=== PATIENT | male | born 1990 | race Caucasian/White ===

== ENCOUNTER 2016-11-24 01:01 | Observation (INO) | payer SELFPAY ==
[2016-11-24 01:17] VITALS: RESP 20; O2SAT 98
[2016-11-24] MEDS ORDERED: Tetanus/Diphtheria Toxoids 0.5 ml Syringe IM ONE ×2 (01:25→01:29)
[2016-11-24] MEDS ORDERED: Lidocaine 1% Inj (20ml) INFIL ONE (01:25)
[2016-11-24] MEDS ORDERED: Lidocaine 1% Inj (20ml) ONE (01:28)
--- NOTE | 2016-11-24 01:49 | C.PDOC ---
History Of Present Illness 25 year old male brought to the ED by ambulance for evaluation of left eyebrow laceration sustained prior to arrival. Patient states he was drinking beer last night and went to the bathroom to vomit and fell and hit his head on the bathtub. He can not confirm or deny LOC but can deny fever, nausea, vomiting, or any vision changes. Time Seen by Provider: 11/24/16 01:09 Chief Complaint (Nursing): Abnormal Skin Integrity History Per: Patient History/Exam Limitations: intoxication Onset/Duration Of Symptoms: Hrs Current Symptoms Are (Timing): Still Present Location Of Injury: Left: Face Severity: Mild Additional History Per: EMS Past Medical History Reviewed: Historical Data, Nursing Documentation, Vital Signs Vital Signs: Last Vital Signs Temp 97.3 F L 11/24/16 05:51 Pulse 89 11/24/16 05:51 Resp 20 11/24/16 05:51 BP 122/70 11/24/16 05:51 Pulse Ox 98 11/24/16 05:53 - Medical History PMH: Depression Family History: States: No Known Family Hx - Social History Hx Alcohol Use: Yes Hx Substance Use: No - Immunization History Hx Tetanus Toxoid Vaccination: No Hx Influenza Vaccination: No Hx Pneumococcal Vaccination: No Review Of Systems Except As Marked, All Systems Reviewed And Found Negative. Constitutional: Negative for: Fever, Chills Eyes: Positive for: Other (pain @ left forehead/eyebrow area ). Negative for: Vision Change Cardiovascular: Negative for: Chest Pain Respiratory: Negative for: Cough, Shortness of Breath Gastrointestinal: Negative for: Nausea, Vomiting, Abdominal Pain, Diarrhea Neurological: Positive for: Headache. Negative for: Weakness, Numbness, Dizziness Psych: Positive for: Other (alcohol intoxication) Physical Exam - Physical Exam Appears: Well, Non-toxic, No Acute Distress, Other (appears intoxicated) Skin: Warm, Dry, Other (approx 4.5cm laceration through left eyebrow, no surrounding erythema, no foreign bodies) Eye(s): bilateral: PERRL, EOMI Oral Mucosa: Moist Neck: Supple Cardiovascular: Rhythm Regular Respiratory: Normal Breath Sounds, No Rales, No Rhonchi, No Wheezing Gastrointestinal/Abdominal: Normal Exam, Bowel Sounds, Soft, No Tenderness Extremity: Normal ROM, No Tenderness Neurological/Psych: Oriented x3 ED Course And Treatment O2 Sat by Pulse Oximetry: 98 (RA) Pulse Ox Interpretation: Normal - CT Scan/US ct head Other Rad Studies (CT/US): Read By Radiologist, Radiology Report Reviewed CT/US Interpretation: [facility]. [facility] Radiology [facility]. Preliminary Radiology Report Call: [phone]. assistance Online chat: [email or web address]. Name: SALVATORE QUEVEDO Age: 25Years M Date: 2016. Requesting Physician: DIANA ARORA : 1990. [facility] Procedure Ordered As Accession Number of Images. CT HEAD WO CT HEAD W O CONTRAST [id number] 315. Provided Clinical History: head injury, loc. DISTRIBUTION MANAGER (QA) DISCREPANCY? If there is a discrepancy between the preliminary and final interpretation, please notify [facility] via [email or web address]. If you do not have access to our QA portal, call our QA team at [phone]. CONFIDENTIALITY STATEMENT. This report is intended only for the use of the referring physician, and only in accordance with law, If you received this in error, call [phone]. Page 1 of 1. EXAM: CT Head Without Intravenous Contrast. CLINICAL HISTORY: 25 years old, male; Pain; Headache and other: Injury; Additional info: Head injury, loc. TECHNIQUE: Axial computed tomography images of the head/brain without intravenous contrast. This CT exam. was performed using one or more of the following dose reduction techniques: automated exposure. control, adjustment of the mA and/or kV according to patient size, and/or use of iterative. reconstruction technique. COMPARISON: No relevant prior studies available. FINDINGS: Brain : Unremarkable. No hemorrhage. No significant white matter disease. No edema. Ventricles: Unremarkable. No ventriculomegaly. Bones/joints: Unremarkable. No acute fracture. Soft tissues: Unremarkable. Sinuses: Unremarkable as visualized. No acute sinusitis. Mastoid air cells: Unremarkable as visualized. No mastoid effusion. IMPRESSION: Normal head/brain CT. Thank you for allowing us to participate in the care of your patient. Dictated and Authenticated by: Sarbjit Miguel MD. 11/24/2016 2:31 AM Eastern Time ([place] & [place]) Progress Note: CT head and accucheck ordered and reviewed. Patient given PO tylenol for pain, and IM tetanus vaccination. Laceration repair done by me, patient tolerated well. Patient placed in ED observation pending sobriety. Reevaluation Time: 06:00 Reassessment Condition: Improved (Patient reassessed, is currently AAOx3, and ambulating normally in the ED. Patient clinically sober at this time, will discharge. Patient given Rx for Naprosyn, and instructed to follow up with PMD/ clinic in 1-2 days. He is aware of need for suture removal in 5-7 days, and he understands he should return to ED if he develops any concerning symptoms.) Laceration - Laceration Repair left eyebrow Wound Length (In cm): 4.5 Description Of Wound: Linear Wound Cleansed With: Sterile Saline Anesthesia: Lidocaine 1% Wound Examination: Irrigated With Saline (100ml), No FB With Wound Exploration, No Tendon Injury With Wound Exploration Wound Closure: Suture Suture Technique And Material Used: Interrupted, Nylon (6 dermal ethilon 5.0 sutures), Vicryl (4 subcutaneous Vicryl 4.0 sutures) Wound Complexity: Intermediate Disposition Counseled Patient/Family Regarding: Studies Performed, Diagnosis, Need For Followup, Rx Given - Disposition Disposition: HOME/ ROUTINE Disposition Time: 06:00 Condition: STABLE - POA Present On Arrival: Falls Or Trauma - Clinical Impression Clinical Impression: Laceration of eyebrow, left, Closed head injury, Alcohol intoxication - Scribe Statement The provider has reviewed the documentation as recorded by the Scribrajan Hi All medical record entries made by the Andreeibrajan were at my direction and personally dictated by me. I have reviewed the chart and agree that the record accurately reflects my personal performance of the history, physical exam, medical decision making, and the department course for this patient. I have also personally directed, reviewed, and agree with the discharge instructions and disposition.
[2016-11-24] MEDS ORDERED: Bacitracin 500 Units/gm Oint Foilpak UD TOP ONE (02:55)
[2016-11-24] MEDS ORDERED: Bacitracin 500 Units/gm Oint Foilpak UD ONE (03:08)
[2016-11-24 05:52] VITALS: BP 122/70; PULSE 89; TEMP 97.3
--- NOTE | 2016-11-24 09:18 | CT ---
PROCEDURE: CT HEAD WITHOUT CONTRAST. HISTORY: head injury, loc COMPARISON: None available. TECHNIQUE: Axial computed tomography images were obtained through the head/brain without intravenous contrast. Radiation dose: Total exam DLP = 720.80 mGy-cm. This CT exam was performed using one or more of the following dose reduction techniques: Automated exposure control, adjustment of the mA and/or kV according to patient size, and/or use of iterative reconstruction technique. FINDINGS: HEMORRHAGE: No intracranial hemorrhage. BRAIN: No mass effect or edema. No atrophy or chronic microvascular ischemic changes. VENTRICLES: Unremarkable. No hydrocephalus. CALVARIUM: Unremarkable. PARANASAL SINUSES: Unremarkable as visualized. No significant inflammatory changes. MASTOID AIR CELLS: Unremarkable as visualized. No inflammatory changes. OTHER FINDINGS: None. IMPRESSION: No acute intracranial abnormalities. No significant findings to account for the clinical presentation. Concordant results (preliminary interpretation) provided by [facility]. Procedure Completed: 02:20. Preliminary ([facility]) Report: Dictated and Authenticated: 02:31. Final Interpretation: 09:16. November 24, 2016.
== END 2016-11-24 05:51 | disposition home or self-care (01) ==
LOC: C.ER 01:01 → C.9OBSV 02:59
PROVIDERS: ADMIT Emergency Medicine; ATTEND Emergency Medicine
DX: F10.120 Alcohol abuse with intoxication, uncomplicated (principal); Y90.9 Presence of alcohol in blood, level not specified; S01.112A Laceration without foreign body of left eyelid and periocular area, initial encounter; W18.39XA Other fall on same level, initial encounter; Y92.002 Bathroom of unspecified non-institutional (private) residence as the place of occurrence of the external cause
CPT/HCPCS: 12013; 70450; 90471; 90714; G0378

== ENCOUNTER 2016-12-03 18:41 | Emergency (ER) | payer SELFPAY ==
[2016-12-03 18:51] VITALS: TEMP 99.1
--- NOTE | 2016-12-03 19:20 | C.PDOC ---
History Of Present Illness 25 y/o male presents for suture removal from left eyebrow area, injury sustained on 11/24/16. pt denies any headaches, dizziness, blurry vision, nausea or vomiting. no fever or chills. Time Seen by Provider: 12/03/16 19:03 Chief Complaint (Nursing): Suture/Staple Removal History Per: Patient History/Exam Limitations: no limitations Onset/Duration Of Symptoms: Days Ago (9) Current Symptoms Are (Timing): Better Location Of Injury: Left: Face (htrough eyebrow) Severity: None Past Medical History Reviewed: Historical Data, Nursing Documentation, Vital Signs Vital Signs: Last Vital Signs Temp 99.1 F 12/03/16 18:49 Pulse 89 12/03/16 20:29 Resp 17 12/03/16 20:29 BP 124/75 12/03/16 20:29 Pulse Ox 98 12/03/16 20:29 - Medical History PMH: Depression Family History: States: Unknown Family Hx - Social History Hx Alcohol Use: Yes Hx Substance Use: No - Immunization History Hx Tetanus Toxoid Vaccination: No Hx Influenza Vaccination: No Hx Pneumococcal Vaccination: No Review Of Systems Constitutional: Negative for: Fever, Chills Eyes: Negative for: Vision Change Gastrointestinal: Negative for: Nausea, Vomiting Musculoskeletal: Negative for: Neck Pain Skin: Positive for: Other (healing laceration) Physical Exam - Physical Exam Appears: Non-toxic, No Acute Distress Skin: Warm, Dry, Other (healing laceration through diagonally through left eyebrow to upper lid, no surrounding erythema, warmth or swelling) Head: Normacephalic Neck: Normal ED Course And Treatment O2 Sat by Pulse Oximetry: 99 Medical Decision Making Medical Decision Making: wound cleaned, and 6 sutures removed with no difficulty by me. Disposition Counseled Patient/Family Regarding: Diagnosis, Need For Followup - Disposition Referrals: [facility] [Outside] Disposition: HOME/ ROUTINE Disposition Time: 19:39 Condition: GOOD Additional Instructions: Be gentle with skin on eyebrow; it will take more time to fully heal. Return to ER for any concerns. Instructions: Stitches Removal (ED) Forms: General Discharge Instructions - Clinical Impression Clinical Impression: Removal of suture
[2016-12-03] MEDS ORDERED: Bacitracin 500 Units/gm Oint Foilpak UD ONE (19:40)
[2016-12-03 20:29] VITALS: BP 124/75; PULSE 89; RESP 17
[2016-12-03 21:37] VITALS: O2SAT 99
== END 2016-12-03 20:30 | disposition home or self-care (01) ==
LOC: C.ER 18:41
DX: Z48.02 Encounter for removal of sutures (principal)